=== PATIENT | male | born 1975 | race Caucasian/White ===

== ENCOUNTER 2017-10-24 04:16 | Emergency (ER) | payer SELFPAY ==
--- NOTE | 2017-10-24 04:58 | EDPHYS ---
Physician Documentation [facility] Name: Roddy Mobley Jr Age: 42 yrs Sex: Male : 1975 Arrival Date: 10/24/2017 Time: 04:20 Bed 8 Private MD: ED Physician Solo Urbano HPI: 10/24 04:53 This 42 yrs old Male presents to ER via Ambulatory with complaints of Blurred tanya Vision, Chills. 04:53 malaise. Onset: The symptoms/episode began/occurred 1 week(s) ago. Severity of tanya symptoms: At their worst the symptoms were mild in the emergency department the symptoms are unchanged. The patient has not experienced similar symptoms in the past. Historical: - Allergies: 04:35 Amoxicillin; bp 04:35 PENICILLINS; bp - Home Meds: 04:35 Paxil Oral [Active]; hydrochlorothiazide Oral [Active]; FENTANYL PUMP [Active]; bp - PMHx: 04:35 Chronic pain; Hypertension; bp - Immunization history:: Adult Immunizations up to date. - Social history:: Smoking status: unknown. - Ebola Screening: : Patient negative for fever greater than or equal to 101.5 degrees Fahrenheit, and additional compatible Ebola Virus Disease symptoms Patient denies exposure to infectious person Patient denies travel to an Ebola-affected area in the 21 days before illness onset No symptoms or risks identified at this time. ROS: 04:55 Constitutional: Negative for fever, chills, and weight loss, Eyes: Negative for injury, tanya pain, redness, and discharge, ENT: Negative for injury, pain, and discharge, Neck: Negative for injury, pain, and swelling, Cardiovascular: Negative for chest pain, palpitations, and edema, Respiratory: Negative for shortness of breath, cough, wheezing, and pleuritic chest pain, Abdomen/GI: Negative for abdominal pain, nausea, vomiting, diarrhea, and constipation, Back: Negative for injury and pain, : Negative for injury, bleeding, discharge, and swelling, MS/Extremity: Negative for injury and deformity, Skin: Negative for injury, rash, and discoloration, Neuro: Negative for headache, weakness, numbness, tingling, and seizure, Psych: Negative for depression, anxiety, suicide ideation, homicidal ideation, and hallucinations, Allergy/Immunology: Negative for hives, rash, and allergies, Endocrine: Negative for neck swelling, polydipsia, polyuria, polyphagia, and marked weight changes, Hematologic/Lymphatic: Negative for swollen nodes, abnormal bleeding, and unusual bruising. Exam: 04:55 Constitutional: This is a well developed, well nourished patient who is awake, alert, tanya and in no acute distress. Head/Face: Normocephalic, atraumatic. Eyes: Pupils equal round and reactive to light, extra-ocular motions intact. Lids and lashes normal. Conjunctiva and sclera are non-icteric and not injected. Cornea within normal limits. Periorbital areas with no swelling, redness, or edema. Neck: Trachea midline, no thyromegaly or masses palpated, and no cervical lymphadenopathy. Supple, full range of motion without nuchal rigidity, or vertebral point tenderness. No Meningismus. Chest/axilla: Normal chest wall appearance and motion. Nontender with no deformity. No lesions are appreciated. Cardiovascular: Regular rate and rhythm with a normal S1 and S2. No gallops, murmurs, or rubs. Normal PMI, no JVD. No pulse deficits. Respiratory: Lungs have equal breath sounds bilaterally, clear to auscultation and percussion. No rales, rhonchi or wheezes noted. No increased work of breathing, no retractions or nasal flaring. Abdomen/GI: Soft, non-tender, with normal bowel sounds. No distension or tympany. No guarding or rebound. No evidence of tenderness throughout. Back: No spinal tenderness. No costovertebral tenderness. Full range of motion. Skin: Warm, dry with normal turgor. Normal color with no rashes, no lesions, and no evidence of cellulitis. MS/ Extremity: Pulses equal, no cyanosis. Neurovascular intact. Full, normal range of motion. Neuro: Awake and alert, GCS 15, oriented to person, place, time, and situation. Cranial nerves II-XII grossly intact. Motor strength 5/5 in all extremities. Sensory grossly intact. Cerebellar exam normal. Normal gait. Psych: Awake, alert, with orientation to person, place and time. Behavior, mood, and affect are within normal limits. 04:55 ENT: Posterior pharynx: Airway: normal, no evidence of obstruction, Tonsils: are normal in appearance, Uvula: normal, midline, swelling, is not appreciated, erythema, is not appreciated, exudate, is not appreciated. Vital Signs: 04:35 BP 140 / 105; Pulse 100; Resp 24; Temp 99.2; Pulse Ox 98% ; Weight 90.72 kg; Height 5 bp ft. 11 in. (180.34 cm); 04:35 Body Mass Index 27.89 (90.72 kg, 180.34 cm) bp MDM: 04:34 Patient medically screened. [facility] 04:56 Data reviewed: vital signs, nurses notes, lab test result(s), urinalysis, urine drug [facility] screen. 10/24 04:58 Order name: UDS [facility] 10/24 05:17 Order name: Urine Dipstick--Ancillary (enter results) mw2 10/24 04:58 Order name: Urine Dipstick-Ancillary (obtain specimen); Complete Time: 05:15 [facility] 10/24 04:58 Order name: Blood Glucose Level; Complete Time: 05:15 [facility] Administered Medications: No medications were administered Point of Care Testing: Blood Glucose: 05:02 Blood Glucose: 104 mg/dL; cc3 Ranges: Critical Glucose Levels:Adult <50 mg/dl or >400 mg/dl <40 mg/dl or >180 mg/dl Disposition: 10/24/17 04:57 Discharged to Home. Impression: Malaise and fatigue. - Condition is Stable. - Discharge Instructions: Weakness, Weakness, [id number]. - Medication Reconciliation Form, Thank You Letter, Antibiotic Education, Prescription Opioid Use form. - Follow up: Private Physician; When: As needed; Reason: Recheck today's complaints, Continuance of care, Re-evaluation by your physician. - Problem is new. - Symptoms have improved. Signatures: Dispatcher [employer] [facility] Solo Urbano MD MD cha Peltier, Brian RN RN Melissa Espinoza cc3 Corrections: (The following items were deleted from the chart) 06:06 04:57 10/24/2017 04:57 Discharged to Home. Impression: Malaise and fatigue. Condition cc3 is Stable. Forms are Medication Reconciliation Form, Thank You Letter, Antibiotic Education, Prescription Opioid Use. Follow up: Private Physician; When: As needed; Reason: Recheck today's complaints, Continuance of care, Re-evaluation by your physician. Problem is new. Symptoms have improved. [facility]
--- NOTE | 2017-10-24 04:58 | ER ---
Nurse's Notes [facility] Name: Roddy Mobley Jr Age: 42 yrs Sex: Male : 1975 Arrival Date: 10/24/2017 Time: 04:20 Bed 8 Private MD: Diagnosis: Malaise and fatigue Presentation: 10/24 04:32 Presenting complaint: Patient states: SUBJECTIVE EXPOSURE AND EDEMA. Transition of bp care: patient was not received from another setting of care. Onset of symptoms is unknown. Risk Assessment: Do you want to hurt yourself or someone else? Patient reports no desire to harm self or others. Initial Sepsis Screen: Does the patient meet any 2 criteria? HR > 90 bpm. Does the patient have a suspected source of infection? No. Patient's initial sepsis screen is negative. Care prior to arrival: None. 04:32 Method Of Arrival: Ambulatory bp 04:32 Acuity: NOE 5 bp Triage Assessment: 04:35 General: Appears in no apparent distress. comfortable, Behavior is cooperative, bp appropriate for age, anxious. Pain: Complains of pain in GENERALIZED. EENT: No deficits noted. Neuro: Level of Consciousness is awake, alert, obeys commands, Oriented to person, place, time, situation, Appropriate for age. Cardiovascular: No deficits noted. Respiratory: Airway is patent Respiratory effort is even, unlabored, Respiratory pattern is regular, symmetrical. GI: No deficits noted. : No signs and/or symptoms were reported regarding the genitourinary system. Derm: Reports itching. Musculoskeletal: Circulation, motion, and sensation intact. Range of motion: intact in all extremities. Historical: - Allergies: 04:35 Amoxicillin; bp 04:35 PENICILLINS; bp - Home Meds: 04:35 Paxil Oral [Active]; hydrochlorothiazide Oral [Active]; FENTANYL PUMP [Active]; bp - PMHx: 04:35 Chronic pain; Hypertension; bp - Immunization history:: Adult Immunizations up to date. - Social history:: Smoking status: unknown. - Ebola Screening: : Patient negative for fever greater than or equal to 101.5 degrees Fahrenheit, and additional compatible Ebola Virus Disease symptoms Patient denies exposure to infectious person Patient denies travel to an Ebola-affected area in the 21 days before illness onset No symptoms or risks identified at this time. Screenin:40 Abuse screen: Denies threats or abuse. Denies injuries from another. Nutritional cc3 screening: No deficits noted. Tuberculosis screening: No symptoms or risk factors identified. Fall Risk Ambulatory Aid- None/Bed Rest/Nurse Assist (0 pts). Gait- Normal/Bed Rest/Wheelchair (0 pts) Mental Status- Oriented to own ability (0 pts). Assessment: 04:40 Reassessment: see triage assessment. cc3 05:45 Reassessment: Patient appears in no apparent distress at this time. Patient and/or cc3 family updated on plan of care and expected duration. Pain level reassessed. Patient is alert, oriented x 3, equal unlabored respirations, skin warm/dry/pink. Dr. Urbano discharged home the patient, no prescription was given. Patient left ER vitally stable and ambulatory with his family. Vital Signs: 04:35 BP 140 / 105; Pulse 100; Resp 24; Temp 99.2; Pulse Ox 98% ; Weight 90.72 kg; Height 5 bp ft. 11 in. (180.34 cm); 04:35 Body Mass Index 27.89 (90.72 kg, 180.34 cm) bp ED Course: 04:20 Patient arrived in ED. ds1 04:22 Getachew Sena, RN is Primary Nurse. bp 04:33 Triage completed. bp 04:34 Solo Urbano MD is Attending Physician. tanya 04:35 Arm band placed on. bp 04:40 Patient has correct armband on for positive identification. Bed in low position. Call cc3 light in reach. 05:45 No provider procedures requiring assistance completed. Patient did not have IV access cc3 during this emergency room visit. Administered Medications: No medications were administered Point of Care Testing: Blood Glucose: 05:02 Blood Glucose: 104 mg/dL; cc3 Ranges: Outcome: 04:57 Discharge ordered by . tanya 05:45 Discharged to home ambulatory, with family. cc3 05:45 Condition: stable 05:45 Discharge instructions given to patient, family, Instructed on discharge instructions, follow up and referral plans. Demonstrated understanding of instructions, follow-up care. 06:06 Patient left the ED. cc3 Signatures: Solo Urbano MD MD cha Sanford, Demi ds1 Getachew Sena, RN RN Melissa Espinoza cc3
[2017-10-24 05:30] LABS: Urine Blood NEGATIVE (NEG); Urine Glucose NEGATIVE (NEG); Urine Protein NEGATIVE (NEG); Urine Specific Gravity >1.030 (1.005-1.030); Urine pH 5.5 (5.0-7.0)
[2017-10-24 05:41] LABS: Barbiturates NEGATIVE (NEGATIVE); Benzodiazepines NEGATIVE (NEGATIVE); Cocaine NEGATIVE (NEGATIVE); METHAMPHETAM POSITIVE (NEGATIVE); Methadone NEGATIVE (NEGATIVE); Opiates NEGATIVE (NEGATIVE); Phencyclidine NEGATIVE (NEGATIVE); THC Cannibis NEGATIVE (NEGATIVE)
== END 2017-10-24 06:06 | disposition home or self-care (01) ==
LOC: ER 04:16
DX: R53.81 Other malaise (principal); R53.83 Other fatigue; Z88.0 Allergy status to penicillin; Z88.1 Allergy status to other antibiotic agents
CPT/HCPCS: 80307; 81003; 82962; 99282